=== PATIENT | male | born 1985 | race African-American/Black ===

== ENCOUNTER 2018-05-23 07:17 | Emergency (ER) | payer OTHER ==
--- NOTE | 2018-05-23 07:42 | ED Physician Documentation ---
PD HPI SYNCOPE - Stated complaint Stated Complaint: SYNCOPE - Chief complaint Chief Complaint: Neuro - History obtained from History obtained from: Patient - History of Present Illness Witnessed: Witnessed Timing - onset: How many minutes ago (30) Duration: Seconds Preceding symptoms: Light headed, Generalized weakness (he has had postural syncope in the past and has had cardiac eval, with tilt test done again just yesterday. He got sick overnight with nausea and several episodes of diarrhea and felt lightheaded and fainted upon getting up this mrelias. Denies injury from it. Feels okay now regarding lightheaded, but still feeling nausea and dehydrated.). No: Headache Contributing factors: Decreased PO intake, Just stood up. No: Recent med change Injury occurred: No: Head injury, Neck injury Review of Systems Constitutional: denies: Fever, Chills, Myalgias Nose: denies: Rhinorrhea / runny nose, Congestion Throat: denies: Sore throat Respiratory: denies: Cough GI: reports: Nausea, Diarrhea. denies: Abdominal Pain, Vomiting : denies: Dysuria, Frequency Neurologic: reports: Generalized weakness, Syncope, Headache. denies: Focal weakness, Numbness PD PAST MEDICAL HISTORY - Past Medical History Cardiovascular: Other (vasovagal syncopal episodes - with prior Holter, ECHO, and recent Tilt test. ) Respiratory: None Neuro: None Endocrine/Autoimmune: None GI: None - Present Medications Home Medications: Ambulatory Orders Medication Instructions Recorded Confirmed Diphenoxylate/Atropine [Lomotil] 1 each PO QID PRN #15 tablet 05/23/18 Midodrine HCl 2.5 mg PO TID 05/23/18 05/23/18 Ondansetron Odt [Zofran] 4 mg TL Q6H PRN #15 tablet 05/23/18 Paroxetine HCl [Paxil] 20 mg PO 05/23/18 - Allergies Allergies/Adverse Reactions: Allergies Allergy/AdvReac Type Severity Reaction Status Date / Time codeine Allergy Nausea Verified 05/23/18 07:43 - Living Situation Living Situation: reports: With spouse/s.o. Living Arrangement: reports: At home - Social History Does the pt smoke?: No Does the pt drink ETOH?: No Does the pt have substance abuse?: No - Family History Family history: denies: Sudden PD ED PE NORMAL - Vitals Vital signs reviewed: Yes - General General: Alert and oriented X 3, No acute distress, Well developed/nourished - HEENT HEENT: Pharynx benign. No: Moist mucous membranes - Neck Neck: Supple, no meningeal sign, No bony TTP, No adenopathy - Cardiac Cardiac: RRR, No murmur - Respiratory Respiratory: Clear bilaterally - Abdomen Abdomen: Normal bowel sounds, Soft, Non tender, Non distended, No organomegaly - Back Back: No CVA TTP - Derm Derm: Normal color, Warm and dry - Neuro Neuro: Alert and oriented X 3, No motor deficit, Normal speech Eye Opening: Spontaneous Motor: Obeys Commands Verbal: Oriented GCS Score: 15 - Psych Psych: Normal mood Results - Vitals Vitals: Vital Signs - 24 hr 05/23/18 09:54 Heart Rate [ 76 Sitting] Heart Rate [ 82 Standing] Heart Rate [ 67 Supine] Blood Pressure 128/76 [Sitting] Blood Pressure 118/76 [Standing] Blood Pressure 117/66 [Supine] Oxygen O2 Source Room air - Labs Labs: Laboratory Tests 05/23/18 05/23/18 05/23/18 08:15 08:15 08:15 WBC 4.5 L RBC 5.62 Hgb 14.5 Hct 44.2 MCV 78.7 L MCH 25.8 L MCHC 32.8 RDW 14.7 Plt Count 129 L MPV 7.7 Neut # (Auto) 2.8 Lymph # (Auto) 1.3 L Desha # (Auto) 0.4 Eos # (Auto) 0.0 Baso # (Auto) 0.0 Absolute Nucleated RBC 0.00 Nucleated RBC % 0.1 ESR Sodium 137 Potassium 4.1 Chloride 102 Carbon Dioxide 25 Anion Gap 10.0 BUN 12 Creatinine 1.1 Estimated GFR (MDRD) 94 Glucose 94 Calcium 9.0 Magnesium 1.8 Total Bilirubin 2.0 H AST 21 ALT 25 Alkaline Phosphatase 27 L CK-MB (CK-2) 3.5 Troponin I < 0.04 Total Protein 7.6 Albumin 4.5 Globulin 3.1 Albumin/Globulin Ratio 1.5 Lipase 26 05/23/18 08:15 WBC RBC Hgb Hct MCV MCH MCHC RDW Plt Count MPV Neut # (Auto) Lymph # (Auto) Desha # (Auto) Eos # (Auto) Baso # (Auto) Absolute Nucleated RBC Nucleated RBC % ESR 1 Sodium Potassium Chloride Carbon Dioxide Anion Gap BUN Creatinine Estimated GFR (MDRD) Glucose Calcium Magnesium Total Bilirubin AST ALT Alkaline Phosphatase CK-MB (CK-2) Troponin I Total Protein Albumin Globulin Albumin/Globulin Ratio Lipase PD MEDICAL DECISION MAKING - ED course Complexity details: considered differential (has symptoms with episodic orthostatic hypotension with fainting and has had cardiac testing. Now compounded with diarrhea overnight, so the syncope seems reasonable and focus of treatment was on the diarrhea and hydrations. ), d/w patient Departure - Departure Disposition: Home, Self Care Clinical Impression: Orthostatic syncope, Nausea vomiting and diarrhea, Dehydration, Abnormal ECG Condition: Stable Record reviewed to determine appropriate education?: Yes Instructions: ED Diarrhea Viral Follow-Up: AURELIANO Carranza [Provider Group] Prescriptions: Diphenoxylate/Atropine [Lomotil] 1 each PO QID PRN #15 tablet PRN Reason: Diarrhea Ondansetron Odt [Zofran] 4 mg TL Q6H PRN #15 tablet PRN Reason: Nausea / Vomiting Comments: Rest at home today and drink lots of fluids. Progress diet as able based on nausea. I presume you were under hydrated because of the diarrhea and the fluids should help. No doubt Adley increased your propensity for lighthe adedness when you stand up fast and led to this fainting again today. We will treat more the diarrhea and volume replacement through the day. Forms: Activity restrictions Discharge Date/Time: 05/23/18 10:03
[2018-05-23] MEDS ORDERED: KETOROLAC 60 MG/2 ML VIAL IVP STA (08:05)
[2018-05-23] MEDS ORDERED: DIPHENOX/ATROPINE 2.5/0.025 MG TABLET PO STA (08:05)
[2018-05-23] MEDS ORDERED: SODIUM CHLORIDE 0.9% 1,000 ML IV ONE ×2 (08:05)
[2018-05-23] MEDS ORDERED: ONDANSETRON 4 MG/2 ML VIAL IVP STA (08:05)
[2018-05-23 08:25] LABS: BASOPHILS % (AUTO) 0.8 %; EOSINOPHILS % (AUTO) 0.6 %; HGB - HEMOGLOBIN 14.5 g/dL (14.0-18.0); LYMPHOCYTES # (AUTO) 1.3 10^3/uL (1.5-3.5); LYMPHOCYTES % (AUTO) 28.2 %; MEAN CORPUSCULAR HEMOGLOBIN 25.8 pg (27.0-31.0); MEAN CORPUSCULAR HGB CONC 32.8 g/dL (32.0-36.0); MEAN CORPUSCULAR VOLUME 78.7 fL (80.0-94.0); MEAN PLATELET VOLUME 7.7 fL (7.4-11.4); MONOCYTES # (AUTO) 0.4 10^3/uL (0.0-1.0); MONOCYTES % (AUTO) 8.6 %; NEUTROPHILS # (AUTO) 2.8 10^3/uL (1.5-6.6); NEUTROPHILS % (AUTO) 61.8 %; PLT - PLATELET COUNT 129 10^3/uL (130-450); RED BLOOD COUNT 5.62 10^6/uL (4.70-6.10); RED CELL DISTRIBUTION WIDTH 14.7 % (12.0-15.0); WHITE BLOOD COUNT 4.5 x10^3/uL (4.8-10.8)
[2018-05-23 08:40] LABS: ALBUMIN 4.5 g/dL (3.2-5.5); ALBUMIN/GLOBULIN RATIO 1.5 (1.0-2.2); CREATININE 1.1 mg/dL (0.6-1.2); MAGNESIUM 1.8 mg/dL (1.7-2.8); TOTAL PROTEIN 7.6 g/dL (6.7-8.2)
[2018-05-23 08:45] LABS: TROPONIN I < 0.04 ng/mL (<0.49)
[2018-05-23 08:47] LABS: CREATINE KINASE MB 3.5 ng/mL (0.6-6.3)
[2018-05-23 09:57] VITALS: BP 118/76
== END 2018-05-23 10:03 | disposition home or self-care (01) ==
LOC: ED 07:17
DX: I95.1 Orthostatic hypotension (principal); E86.0 Dehydration; R19.7 Diarrhea, unspecified; R94.31 Abnormal electrocardiogram [ECG] [EKG]
CPT/HCPCS: 36415; 80053; 82553; 83690; 83735; 84484; 85025; 85651; 93005; 96361; 96374; 99283; A9270

== ENCOUNTER 2018-10-18 06:41 | Outpatient (CLI) | payer OTHER | END 2018-10-18 06:42 | disposition EMS.NT | LOC: EMS 06:41 | PROVIDERS: ATTEND Surgery | DX: R42 Dizziness and giddiness (principal); R25.1 Tremor, unspecified ==

== ENCOUNTER 2018-10-18 07:44 | Emergency (ER) | payer OTHER ==
[2018-10-18] MEDS ORDERED: LORazepam 2 MG/ML VIAL IVP STA (08:41)
[2018-10-18] MEDS ORDERED: FOLIC ACID INJ 1 MG, THIAMINE INJ 100 MG, MAGNESIUM SULFATE 2 GM, MULTIVITAMIN 10 ML in... IV STA ×5 (08:43)
--- NOTE | 2018-10-18 08:44 | ED Physician Documentation ---
History of Present Illness - Stated complaint Stated Complaint: WITHDRAWL - Chief complaint Chief Complaint: General - History obtained from History obtained from: Patient, Friend - History of Present Illness Timing: How many days ago (3) - Additonal information Additional information: 33-year-old alcoholic male who has been drinking continuously has stopped dri nking 60 hours ago and he started a Librium taper yesterday today he is having significant symptoms including some chest pressure and shakiness. Review of Systems Constitutional: reports: Myalgias, Fatigue. denies: Fever, Chills Eyes: denies: Decreased vision Ears: denies: Ear pain Nose: denies: Rhinorrhea / runny nose, Congestion Throat: denies: Sore throat Cardiac: reports: Chest pain / pressure. denies: Palpitations, Pedal edema, Calf pain Respiratory: denies: Dyspnea, Cough GI: reports: Abdominal Pain, Nausea, Vomiting : denies: Dysuria, Frequency PD PAST MEDICAL HISTORY - Past Medical History Cardiovascular: Other (vasovagal syncopal episodes - with prior Holter, ECHO, and recent Tilt test. ) Respiratory: None Neuro: None Endocrine/Autoimmune: None GI: None - Past Surgical History Past Surgical History: No - Present Medications Home Medications: Ambulatory Orders Medication Instructions Recorded Confirmed Midodrine HCl 2.5 mg PO TID 05/23/18 05/23/18 Paroxetine HCl [Paxil] 20 mg PO 05/23/18 Lorazepam [Ativan] 1 - 2 mg PO Q6HR PRN #30 tablet 10/18/18 Ondansetron Odt [Zofran] 4 mg TL Q6H PRN #10 tablet 10/18/18 chlordiazePOXIDE [Librium] 25 mg PO 10/18/18 10/18/18 - Allergies Allergies/Adverse Reactions: Allergies Allergy/AdvReac Type Severity Reaction Status Date / Time codeine Allergy Nausea Verified 10/18/18 07:51 - Social History Does the pt smoke?: No Smoking Status: Never smoker Does the pt drink ETOH?: No Does the pt have substance abuse?: No PD ED PE NORMAL - Vitals Vital signs reviewed: Yes (hypertensive mild ) - General General: Alert and oriented X 3, Well developed/nourished, Other (shakey and with delayed execution of motor commands. 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, No motor deficit, No sensory deficit, Normal speech Eye Opening: Spontaneous Motor: Obeys Commands Verbal: Oriented GCS Score: 15 - Psych Psych: Normal mood, Normal affect Results - Vitals Vitals: Vital Signs - 24 hr 10/18/18 10/18/18 10/18/18 07:48 08:34 09:42 Temperature 36.1 C L Heart Rate 76 80 73 Respiratory 20 18 18 Rate Blood Pressure 117/93 H 121/54 L 121/78 O2 Saturation 100 100 100 10/18/18 11:34 Temperature 36.0 C L Heart Rate 69 Respiratory 26 H Rate Blood Pressure 121/76 O2 Saturation 100 Oxygen O2 Source Room air - EKG (time done) 0803 Rate: Rate (enter#) (82) Rhythm: NSR QRS: Low voltage Ischemia: ST elevation c/w repol Compare to prior EKG: Changed from prior EKG (SPT 05-23-18 early repolarization findings are less prominent today .) Computer interpretation: Agree with computer - Labs Labs: Laboratory Tests 10/18/18 10/18/18 10/18/18 08:37 08:45 08:45 WBC 5.2 RBC 5.64 Hgb 14.8 Hct 45.9 MCV 81.3 MCH 26.2 L MCHC 32.2 RDW 15.0 Plt Count 136 MPV 8.3 Neut # (Auto) 3.1 Lymph # (Auto) 1.6 [place] # (Auto) 0.4 Eos # (Auto) 0.0 Baso # (Auto) 0.1 Absolute Nucleated RBC 0.01 Nucleated RBC % 0.1 PT 11.7 INR 1.0 Sodium Potassium Chloride Carbon Dioxide Anion Gap BUN Creatinine Estimated GFR (MDRD) Glucose Calcium Total Bilirubin AST ALT Alkaline Phosphatase Troponin I Total Protein Albumin Globulin Albumin/Globulin Ratio Lipase Urine Color YELLOW Urine Clarity CLEAR Urine pH 6.5 Ur Specific [place] 1.010 Urine Protein NEGATIVE Urine Glucose (UA) NEGATIVE Urine Ketones NEGATIVE Urine Occult Blood NEGATIVE Urine Nitrite NEGATIVE Urine Bilirubin NEGATIVE Urine Urobilinogen 0.2 (NORMAL) Ur Leukocyte Esterase NEGATIVE Ur Microscopic Review NOT INDICATED Urine Culture Comments NOT INDICATED Ethyl Alcohol 10/18/18 10/18/18 08:45 08:45 WBC RBC Hgb Hct MCV MCH MCHC RDW Plt Count MPV Neut # (Auto) Lymph # (Auto) [place] # (Auto) Eos # (Auto) Baso # (Auto) Absolute Nucleated RBC Nucleated RBC % PT INR Sodium 139 Potassium 4.0 Chloride 100 L Carbon Dioxide 27 Anion Gap 12.0 BUN 14 Creatinine 1.1 Estimated GFR (MDRD) 93 Glucose 87 Calcium 9.3 Total Bilirubin 1.1 H AST 23 ALT 22 Alkaline Phosphatase 26 L Troponin I < 0.04 Total Protein 7.7 Albumin 4.4 Globulin 3.3 Albumin/Globulin Ratio 1.3 Lipase 29 Urine Color Urine Clarity Urine pH Ur Specific [place] Urine Protein Urine Glucose (UA) Urine Ketones Urine Occult Blood Urine Nitrite Urine Bilirubin Urine Urobilinogen Ur Leukocyte Esterase Ur Microscopic Review Urine Culture Comments Ethyl Alcohol < 5.0 PD MEDICAL DECISION MAKING - ED course Complexity details: reviewed results, re-evaluated patient, considered differential, d/w patient, d/w family ED course: 33-year-old alcoholic male in acute withdrawal has had inadequate relief with the use of Librium. He is administered a banana bag intravenously and given 2 mg of Ativan intravenously. He feels much improved. I have discussed with the patient the nature of alcohol withdrawal and the need for medications to prevent the shakes, hallucinations and seizure and we will switch to the ativan for control of withdrawal symptoms. Departure - Departure Disposition: 01 Home, Self Care Clinical Impression: Alcohol withdrawal Qualifiers: Complication of substance-induced condition: with perceptual disturbance Qualified Code(s): F10.232 - Alcohol dependence with withdrawal with perceptual disturbance Condition: Stable Instructions: ED Withdrawal Alcohol Follow-Up: AURELIANO Carranza [Provider Group] Prescriptions: Lorazepam [Ativan] 1 - 2 mg PO Q6HR PRN #30 tablet PRN Reason: withdrawal symptoms Ondansetron Odt [Zofran] 4 mg TL Q6H PRN #10 tablet PRN Reason: Nausea / Vomiting Forms: Activity restrictions Discharge Date/Time: 10/18/18 11:37
[2018-10-18 09:02] LABS: BASOPHILS # (AUTO) 0.1 10^3/uL (0.0-0.1); BASOPHILS % (AUTO) 1.4 %; EOSINOPHILS % (AUTO) 0.4 %; HGB - HEMOGLOBIN 14.8 g/dL (14.0-18.0); LYMPHOCYTES # (AUTO) 1.6 10^3/uL (1.5-3.5); LYMPHOCYTES % (AUTO) 30.9 %; MEAN CORPUSCULAR HEMOGLOBIN 26.2 pg (27.0-31.0); MEAN CORPUSCULAR HGB CONC 32.2 g/dL (32.0-36.0); MEAN CORPUSCULAR VOLUME 81.3 fL (80.0-94.0); MEAN PLATELET VOLUME 8.3 fL (7.4-11.4); MONOCYTES # (AUTO) 0.4 10^3/uL (0.0-1.0); MONOCYTES % (AUTO) 7.4 %; NEUTROPHILS # (AUTO) 3.1 10^3/uL (1.5-6.6); NEUTROPHILS % (AUTO) 59.9 %; PLT - PLATELET COUNT 136 10^3/uL (130-450); RED BLOOD COUNT 5.64 10^6/uL (4.70-6.10); WHITE BLOOD COUNT 5.2 x10^3/uL (4.8-10.8)
[2018-10-18 09:04] LABS: BILIRUBIN,URINE NEGATIVE (NEGATIVE); GLUCOSE, URINE (UA) NEGATIVE (NEGATIVE); KETONES,URINE (UA) NEGATIVE (NEGATIVE); LEUKOCYTE ESTERASE, URINE NEGATIVE (NEGATIVE); NITRITE,URINE NEGATIVE (NEGATIVE); OCCULT BLOOD,URINE NEGATIVE (NEGATIVE); PH,URINE 6.5 PH (5.0-7.5); PROTEIN,URINE NEGATIVE (NEGATIVE); UROBILINOGEN,URINE 0.2 (NORMAL) E.U./dL (NORMAL)
[2018-10-18 09:06] LABS: CLARITY,URINE CLEAR (CLEAR)
[2018-10-18 09:10] LABS: ALBUMIN 4.4 g/dL (3.2-5.5); ALBUMIN/GLOBULIN RATIO 1.3 (1.0-2.2); ALKALINE PHOSPHATASE 26 IU/L (42-121); ALT ALANINE AMINOTRANSFERASE 22 IU/L (10-60); AST ASPARTATE AMINOTRANSFERASE 23 IU/L (10-42); BILIRUBIN,TOTAL 1.1 mg/dL (0.2-1.0); BUN - BLOOD UREA NITROGEN 14 mg/dL (6-20); CALCIUM 9.3 mg/dL (8.5-10.3); CARBON DIOXIDE - CO2 27 mmol/L (21-32); CHLORIDE 100 mmol/L (101-111); CREATININE 1.1 mg/dL (0.6-1.2); GFR - MDRD 93 (>89); GLUCOSE 87 mg/dL (70-100); LIPASE 29 U/L (22-51); SODIUM 139 mmol/L (135-145); TOTAL PROTEIN 7.7 g/dL (6.7-8.2)
[2018-10-18 09:32] LABS: PT - PROTHROMBIN TIME 11.7 secs (9.9-12.6)
[2018-10-18 11:35] VITALS: BP 121/76
== END 2018-10-18 11:37 | disposition home or self-care (01) ==
LOC: EDUNIT# → ED 07:44
DX: F10.232 Alcohol dependence with withdrawal with perceptual disturbance (principal)
CPT/HCPCS: 36415; 80053; 80320; 81003; 83690; 84484; 85025; 85610; 93005; 96365; 96375; 99284; J2060; J3411; 81001; 87086

== ENCOUNTER 2018-10-22 13:38 | Emergency (ER) | payer OTHER ==
--- NOTE | 2018-10-22 13:51 | ED Physician Documentation ---
History of Present Illness - Stated complaint Stated Complaint: MHE - Chief complaint Chief Complaint: MHE - History obtained from History obtained from: Patient - History of Present Illness Timing: Prior to arrival - Additonal information Additional information: Patient is a 33-year-old male with history of alcohol use, although no other known psychiatric diagnoses, presenting with concern for suicidal ideation and cutting of his wrists. Patient was seen on 10/18/18 for alcohol withdrawal symptoms. Patient had been on a Librium taper and also received a banana bag and Ativan while in the ED. Since discharge, patient reports he has not had any issues with alcohol withdrawal and has not had another drink. Patient also denies recreational drug use. Patient reports history of vasovagal syncope, although not on any medications. Patient denies other medical complaints except for feeling "used" by both family and work. Patient describes symptoms of depression and feeling suicidal, but denies hallucinations. Patient reports that he would use guns or knives, although his guns have been taken from him. Patient does admit to scratching his right thigh, as well as cutting his left wrist. Tetanus current. No other improving or worsening factors to his symptoms noted. Review of Systems Psychiatric: reports: Depressed, Suicidal PD PAST MEDICAL HISTORY - Past Medical History Cardiovascular: Other (vasovagal syncopal episodes - with prior Holter, ECHO, and recent Tilt test. ) Respiratory: None Neuro: None Endocrine/Autoimmune: None GI: None - Past Surgical History Past Surgical History: No - Present Medications Home Medications: Ambulatory Orders Medication Instructions Recorded Confirmed Lorazepam [Ativan] 1 - 2 mg PO Q6HR PRN #30 tablet 10/18/18 10/22/18 Ondansetron Odt [Zofran] 4 mg TL Q6H PRN #10 tablet 10/18/18 10/22/18 - Allergies Allergies/Adverse Reactions: Allergies Allergy/AdvReac Type Severity Reaction Status Date / Time codeine Allergy Nausea Verified 10/18/18 07:51 - Social History Does the pt smoke?: No Smoking Status: Never smoker Does the pt drink ETOH?: No Does the pt have substance abuse?: No PD ED PE NORMAL - General General: Alert and oriented X 3, No acute distress, Well developed/nourished - HEENT HEENT: Atraumatic, Moist mucous membranes, Pharynx benign - Cardiac Cardiac: RRR, No murmur - Respiratory Respiratory: No respiratory distress, Clear bilaterally - Abdomen Abdomen: Normal bowel sounds, Soft, Non tender, Non distended - Derm Derm: Normal color, Warm and dry, No rash, Other (Less than 1 cm linear laceration to dorsal aspect of left wrist with no active bleeding or damage to underlying structures. No tendon involvement, retained foreign body, or other complications such as infection noted.) - Extremities Extremities: No deformity, No tenderness to palpate, No edema - Neuro Neuro: Alert and oriented X 3, No motor deficit, No sensory deficit - Psych Psych: No: Normal affect (Flat affect, admits to depression-like symptoms and suicidal ideation. Denies hallucinations.) Results - Vitals Vitals: Vital Signs - 24 hr 10/22/18 13:44 Temperature 36.7 C Heart Rate 80 Respiratory 16 Rate Blood Pressure 117/86 H O2 Saturation 100 Oxygen O2 Source Room air - Labs Labs: Laboratory Tests 10/22/18 10/22/18 10/22/18 14:05 14:05 14:05 WBC 4.4 L RBC 5.99 Hgb 15.6 Hct 48.2 MCV 80.5 MCH 26.1 L MCHC 32.4 RDW 14.9 Plt Count 135 MPV 7.8 Neut # (Auto) 2.5 Lymph # (Auto) 1.4 L [place] # (Auto) 0.3 Eos # (Auto) 0.0 Baso # (Auto) 0.1 Absolute Nucleated RBC 0.00 Nucleated RBC % 0.1 WBC Morphology NORMAL APPEARANCE Platelet Estimate NORMAL (130-450,000) Platelet Morphology RARE GIANT PLATELETS RBC Morph Micro Appear ACANTHOCYTES Sodium 136 Potassium 3.9 Chloride 98 L Carbon Dioxide 28 Anion Gap 10.0 BUN 10 Creatinine 1.2 Estimated GFR (MDRD) 85 L Glucose 90 Calcium 10.2 Total Bilirubin 1.2 H AST 29 ALT 30 Alkaline Phosphatase 31 L Total Protein 8.6 H Albumin 4.8 Globulin 3.8 Albumin/Globulin Ratio 1.3 Lipase 29 TSH 1.19 Urine Color Urine Clarity Urine pH Ur Specific [place] Urine Protein Urine Glucose (UA) Urine Ketones Urine Occult Blood Urine Nitrite Urine Bilirubin Urine Urobilinogen Ur Leukocyte Esterase Ur Microscopic Review Urine Culture Comments Salicylates < 6.0 Urine Opiates Screen Ur Oxycodone Screen Urine Methadone Screen Ur Propoxyphene Screen Acetaminophen < 10 L Ur Barbiturates Screen Ur Tricyclics Screen Ur Phencyclidine Scrn Ur Amphetamine Screen U Methamphetamines Scrn U Benzodiazepines Scrn Urine Cocaine Screen U Cannabinoids Screen Ethyl Alcohol < 5.0 10/22/18 14:19 WBC RBC Hgb Hct MCV MCH MCHC RDW Plt Count MPV Neut # (Auto) Lymph # (Auto) [place] # (Auto) Eos # (Auto) Baso # (Auto) Absolute Nucleated RBC Nucleated RBC % WBC Morphology Platelet Estimate Platelet Morphology RBC Morph Micro Appear Sodium Potassium Chloride Carbon Dioxide Anion Gap BUN Creatinine Estimated GFR (MDRD) Glucose Calcium Total Bilirubin AST ALT Alkaline Phosphatase Total Protein Albumin Globulin Albumin/Globulin Ratio Lipase TSH Urine Color YELLOW Urine Clarity CLEAR Urine pH 8.0 H Ur Specific [place] 1.015 Urine Protein NEGATIVE Urine Glucose (UA) NEGATIVE Urine Ketones NEGATIVE Urine Occult Blood NEGATIVE Urine Nitrite NEGATIVE Urine Bilirubin NEGATIVE Urine Urobilinogen 0.2 (NORMAL) Ur Leukocyte Esterase NEGATIVE Ur Microscopic Review NOT INDICATED Urine Culture Comments NOT INDICATED Salicylates Urine Opiates Screen NEGATIVE Ur Oxycodone Screen NEGATIVE Urine Methadone Screen NEGATIVE Ur Propoxyphene Screen NEGATIVE Acetaminophen Ur Barbiturates Screen NEGATIVE Ur Tricyclics Screen NEGATIVE Ur Phencyclidine Scrn NEGATIVE Ur Amphetamine Screen NEGATIVE U Methamphetamines Scrn NEGATIVE U Benzodiazepines Scrn POSITIVE H Urine Cocaine Screen NEGATIVE U Cannabinoids Screen NEGATIVE Ethyl Alcohol Procedures - Laceration (location) Upper extremity left Length in cm: 1 Wound type: Linear Neurovascular status: Sensory intact, Motor intact, Vascular intact Tendon involvement: Tendon intact Skin layer closure: Dermabond Other: Patient tolerated well, No complications, Neurovascular intact, Tetanus UTD PD MEDICAL DECISION MAKING - ED course Complexity details: reviewed results, re-evaluated patient, considered differential, d/w patient ED course: Patient has struggled with alcohol use and was seen recently for withdrawal symptoms that require Librium taper, as well as Ativan, and banana bag. Patient denies recent alcohol use and do not find evidence of alcohol intoxication or acute withdrawal symptoms on exam. Do not believe he is experiencing delirium tremens or other complication from alcohol use. Additionally, I do not find evidence of other acute pathology or systemic illness, but trauma only to left wrist that was appropriately cleaned and repaired with Dermabond. Tetanus current. Patient appears to be struggling with mental health issues, likely depression and suicidal ideation. Obtained screening lab work and urinalysis and contacted social work for further evaluation.Screening lab work, urinalysis, and drug testing returned relatively unremarkable except for presence of benzodiazepines, which is likely from medications given several days ago for alcohol withdrawal. Social work evaluated patient in emergency department and recommended tele psychiatry evaluation. Slight psychiatry evaluation was performed. Tele psychiatrist recommended altering inpatient hospitalization, particularly as patient had admitted to feeling suicidal over the past several months. Patient's guns have been removed from his home and he was no longer allowed to carry a weapon per protocol as [place] the past several months as well. The psychiatrist also recommended starting Prozac 10 mg daily. Medication was ordered and patient tolerating oral intake without issue in ED. As patient is , [facility] contacted and accepted patient for transfer. Patient amenable to this plan. Departure - Departure Disposition: 02 Transfer Acute Care Hosp Clinical Impression: Suicidal ideation
[2018-10-22 14:17] LABS: BASOPHILS # (AUTO) 0.1 10^3/uL (0.0-0.1); BASOPHILS % (AUTO) 3.3 %; EOSINOPHILS % (AUTO) 0.8 %; HGB - HEMOGLOBIN 15.6 g/dL (14.0-18.0); LYMPHOCYTES # (AUTO) 1.4 10^3/uL (1.5-3.5); LYMPHOCYTES % (AUTO) 32.3 %; MEAN CORPUSCULAR HEMOGLOBIN 26.1 pg (27.0-31.0); MEAN CORPUSCULAR HGB CONC 32.4 g/dL (32.0-36.0); MEAN CORPUSCULAR VOLUME 80.5 fL (80.0-94.0); MEAN PLATELET VOLUME 7.8 fL (7.4-11.4); MONOCYTES # (AUTO) 0.3 10^3/uL (0.0-1.0); MONOCYTES % (AUTO) 5.8 %; NEUTROPHILS # (AUTO) 2.5 10^3/uL (1.5-6.6); NEUTROPHILS % (AUTO) 57.8 %; PLT - PLATELET COUNT 135 10^3/uL (130-450); RED BLOOD COUNT 5.99 10^6/uL (4.70-6.10); RED CELL DISTRIBUTION WIDTH 14.9 % (12.0-15.0); WHITE BLOOD COUNT 4.4 x10^3/uL (4.8-10.8)
[2018-10-22 14:28] LABS: MUDS CUTOFF CONCENTRATIONS CUTOFF CONC BELOW:
[2018-10-22 14:30] LABS: BILIRUBIN,URINE NEGATIVE (NEGATIVE); GLUCOSE, URINE (UA) NEGATIVE (NEGATIVE); KETONES,URINE (UA) NEGATIVE (NEGATIVE); LEUKOCYTE ESTERASE, URINE NEGATIVE (NEGATIVE); NITRITE,URINE NEGATIVE (NEGATIVE); OCCULT BLOOD,URINE NEGATIVE (NEGATIVE); PROTEIN,URINE NEGATIVE (NEGATIVE); UROBILINOGEN,URINE 0.2 (NORMAL) E.U./dL (NORMAL)
[2018-10-22 14:33] LABS: CLARITY,URINE CLEAR (CLEAR)
[2018-10-22 14:39] LABS: ACETAMINOPHEN < 10 ug/mL (10-30); ALBUMIN 4.8 g/dL (3.2-5.5); ALBUMIN/GLOBULIN RATIO 1.3 (1.0-2.2); ALKALINE PHOSPHATASE 31 IU/L (42-121); ALT ALANINE AMINOTRANSFERASE 30 IU/L (10-60); AST ASPARTATE AMINOTRANSFERASE 29 IU/L (10-42); BILIRUBIN,TOTAL 1.2 mg/dL (0.2-1.0); BUN - BLOOD UREA NITROGEN 10 mg/dL (6-20); CALCIUM 10.2 mg/dL (8.5-10.3); CARBON DIOXIDE - CO2 28 mmol/L (21-32); CHLORIDE 98 mmol/L (101-111); CREATININE 1.2 mg/dL (0.6-1.2); GFR - MDRD 85 (>89); GLUCOSE 90 mg/dL (70-100); LIPASE 29 U/L (22-51); SALICYLATE < 6.0 mg/dL; SODIUM 136 mmol/L (135-145); TOTAL PROTEIN 8.6 g/dL (6.7-8.2)
[2018-10-22 14:44] LABS: AMPHETAMINE SCREEN,URINE NEGATIVE (NEGATIVE); BENZODIAZEPINES SCREEN, URINE POSITIVE (NEGATIVE); COCAINE SCREEN URINE NEGATIVE (NEGATIVE); METHADONE SCREEN, URINE NEGATIVE (NEGATIVE); METHAMPHETAMINES SCREEN, URINE NEGATIVE (NEGATIVE); OPIATE SCREEN, URINE NEGATIVE (NEGATIVE); OXYCODONE SCREEN, URINE NEGATIVE (NEGATIVE); PROPOXYPHENE SCREEN, URINE NEGATIVE (NEGATIVE); TRICYCLIC ANTIDEPRESSANT,URINE NEGATIVE (NEGATIVE)
[2018-10-22 14:56] LABS: PLATELET ESTIMATE, MANUAL NORMAL (130-450,000) (NORMAL); PLATELET MORPHOLOGY RARE GIANT PLATELETS (NORMAL)
--- NOTE | 2018-10-22 19:12 | TELEPSYCH PHYS NOTE ---
Telepsych Note - CHIEF COMPLAINT/HX OF PRESENT ILLNESS Cheif Complaint and History of Present Illness: Chief Complaint: depression HPI: The patient is a 33-year-old -[place] male with a history of depression. He comes to the hospital with cut to his wrists. He admitted to suicidal thoughts. He was referred to psychiatry. When seen by the psychiatrist, the patient reported that he has been depressed for the past 6 months with poor sleep, poor appetite, and feelings of hopelessness. 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 His guns were removed by his employer 2 months ago due to his mental state. - SI/HI/SELF HARM SI/HI/SELF HARM (CURRENT OR HISTORY OF):: SI SI/HI/Self Harm Text (Current or History of):: No prior suicide attempts. - VIOLENCE/LEGAL/COLLATERAL Violence - Legal - Collateral: Violence: none Legal: none Collateral: none - PSYCHIATRIC HX/TREATMENT HX Psychiatric/Treatment Hx Other: One prior inpatient admission in 2008 ([place]). Current outpatient treatment-on [employer]. No prior suicide attempts. - DRUG/ALCOHOL HX ETOH Use: Beer Substance use/abuse/alcohol text: Alcohol-drinks 7-8 beers and a bottle of alcohol daily, sober for one week - MEDICAL HX Does the pt have a hx of MRSA?: No Neurological History: None Cardiovascular: Other Respiratory: None Endocrine/Autoimmune: None Gastrointestinal: None - HOME MEDICATIONS Home Meds (as last confirmed): none - ALLERGIES Allergies (as last confirmed): Allergies Allergy/AdvReac Type Severity Reaction Status Date / Time codeine Allergy Nausea Verified 10/18/18 07:51 - FAMILY PSYCH/SUICIDE/SOCIAL HX-MENTAL Family - Suicide - Social Hx and Mental Status Exam: Family Psychiatric History: none Social History: , lives with and 5 kids Employment: logistics team lead Education: HS grad, some college Stressors: family, chronic pain History: none Abuse: none Mental Status Examination: Attitude and behavior: cooperative Speech: WNL Affect and mood: sad affect and mood Association and thought processes: linear Thought content: no delusions, + SI, no HI Perception: no hallucinations Sensorium, memory, and orientation: AAOx3 Intellectual functioning: average Insight and judgment: poor - PATIENT PROBLEM LIST (1) Major depressive disorder, recurrent severe without psychotic features Impression: The patient is a 33-year-old male with a history of depression and alcohol abuse. He presents to the hospital complaining of several months of depressed mood and suicidal thoughts. The patient is not safe for discharge. Admit as voluntary. Start antidepressants. - TREATMENT/PHARMACOLOGICAL RECOMMENDATION Treatment - Pharmacological - Therapy Recommendations: Treatment Recommendations: inpatient care Pharmacological: Prozac 10 mg daily Therapy: supportive Level of Care: inpatient - TIME SPENT & PROVIDER LOCATION Telepsych consultation conducted via videoconferencing: Yes List names and roles of persons who participated in consult: José Miguel Willingham M.D. [facility] Telepsych Provider Location: [place] Time Telepsych consult began: 21:40 Time Telepsych consult completed: 22:00
[2018-10-22] MEDS ORDERED: FLUoxetine 10 MG CAPSULE PO SCH (21:00)
[2018-10-22 21:43] VITALS: BP 117/91
== END 2018-10-22 22:38 | disposition short-term general hospital (02) ==
LOC: EDUNIT# → ED 13:38
DX: R45.851 Suicidal ideations (principal); F33.2 Major depressive disorder, recurrent severe without psychotic features; S61.512A Laceration without foreign body of left wrist, initial encounter; S70.311A Abrasion, right thigh, initial encounter; X78.9XXA Intentional self-harm by unspecified sharp object, initial encounter
CPT/HCPCS: 12001; 36415; 80320; 80329; 81003; 83690; 93005; 99283; 99284; A9270; Q3014; 80053; 80306; 80307; 81001; 84443; 85025; 87086

== ENCOUNTER 2019-04-01 06:05 | Outpatient (CLI) | payer OTHER | END 2019-04-01 06:06 | disposition critical access hospital (66) | LOC: EMS 06:05 | PROVIDERS: ATTEND Surgery | DX: R55 Syncope and collapse (principal) | CPT/HCPCS: A0425; A0429 ==

== ENCOUNTER 2019-04-01 06:28 | Emergency (ER) | payer OTHER ==
--- NOTE | 2019-04-01 07:42 | ED Physician Documentation ---
PD HPI SYNCOPE - Stated complaint Stated Complaint: NEAR SYNCOPE - Chief complaint Chief Complaint: Neuro - History obtained from History obtained from: Patient - History of Present Illness Witnessed: Witnessed Timing - onset: Today Duration: Minutes Preceding symptoms: Vision changes, Light headed Associated symptoms: Headache Contributing factors: Just stood up (to get into shower), Other (has started working 2 jobs) Treatment [employer]: Fluids Similar symptoms before: Diagnosis (vasovagal syncope) Recently seen: Not recently seen - Additional information Additional information: Syncope and near syncope got up to get into the shower this morning and felt lightheaded and dizzy had to sit down in the shower is brought to the hospital now by ambulance he was given 450 mL's of saline in route the patient feels well now. He has had headache the past 2 days but no other specific symptoms. He has recently started working a second job and is now working 7 days/week. He does feel fatigued. He denies specifically a cough or sore throat. Review of Systems Constitutional: reports: Myalgias, Fatigue. denies: Fever Eyes: denies: Decreased vision Ears: denies: Ear pain Nose: denies: Rhinorrhea / runny nose, Congestion Throat: denies: Sore throat Cardiac: denies: Chest pain / pressure, Palpitations Respiratory: denies: Dyspnea, Cough GI: reports: Nausea. denies: Abdominal Pain, Vomiting, Constipation, Diarrhea : denies: Dysuria, Frequency Skin: denies: Rash Musculoskeletal: denies: Neck pain, Back pain, Extremity pain Neurologic: reports: Near syncope, Headache. denies: Generalized weakness, Focal weakness, Numbness, Head injury, LOC PD PAST MEDICAL HISTORY - Past Medical History Past Medical History: Yes Cardiovascular: Other Respiratory: None Neuro: None Endocrine/Autoimmune: None GI: None - Past Surgical History Past Surgical History: No - Present Medications Home Medications: Ambulatory Orders Medication Instructions Recorded Confirmed Lorazepam [Ativan] 1 - 2 mg PO Q6HR PRN #30 tablet 10/18/18 10/22/18 Ondansetron Odt [Zofran] 4 mg TL Q6H PRN #10 tablet 10/18/18 10/22/18 Azithromycin [Zithromax] 250 mg PO DAILY #6 tablet 04/01/19 - Allergies Allergies/Adverse Reactions: Allergies Allergy/AdvReac Type Severity Reaction Status Date / Time codeine Allergy Nausea Verified 10/18/18 07:51 - Social History Does the pt smoke?: No Smoking Status: Never smoker Does the pt drink ETOH?: Yes Does the pt have substance abuse?: No - Immunizations Immunizations are current?: Yes - POLST Patient has POLST: No PD ED PE NORMAL - Vitals Vital signs reviewed: Yes (normal ) - General General: Alert and oriented X 3, No acute distress, Well developed/nourished - HEENT HEENT: Atraumatic, PERRL, EOMI, Other (The right TM is clear the left is inflamed with rounding of the landmarks. The pharynx is with 2+ tonsils worse on the left with exudate. 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, No motor deficit, No sensory deficit, Normal speech Eye Opening: Spontaneous Motor: Obeys Commands Verbal: Oriented GCS Score: 15 - Psych Psych: Normal mood, Normal affect Results - Vitals Vitals: Vital Signs - 24 hr 04/01/19 04/01/19 04/01/19 06:29 06:35 09:27 Temperature 36.5 C Heart Rate 69 62 71 Respiratory 16 14 17 Rate Blood Pressure 113/71 113/71 117/80 O2 Saturation 100 100 100 Oxygen O2 Source Room air - EKG (time done) 0633 Rate: Rate (enter#) (60) Ischemia: ST elevation c/w repol Compare to prior EKG: Unchanged from prior EKG (SPT 10-18-2018 rate has slowed and the baseline has improved repolarization similar to priors. ) Computer interpretation: Agree with computer - Labs Labs: Laboratory Tests 04/01/19 04/01/19 04/01/19 06:40 06:40 06:40 WBC 5.2 RBC 5.65 Hgb 14.4 Hct 46.1 MCV 81.6 MCH 25.5 L MCHC 31.2 L RDW 13.8 Plt Count 135 MPV 10.8 Neut # (Auto) 1.6 Lymph # (Auto) 3.0 Irwin # (Auto) 0.5 Eos # (Auto) 0.1 Baso # (Auto) 0.0 Absolute Nucleated RBC 0.00 Nucleated RBC % 0.0 Sodium 140 Potassium 4.0 Chloride 106 Carbon Dioxide 27 Anion Gap 7.0 BUN 20 Creatinine 1.2 Estimated GFR (MDRD) 85 L Glucose 80 Calcium 8.9 Total Bilirubin 1.8 H AST 22 ALT 18 Alkaline Phosphatase 21 L Troponin I High Sens 3.8 Total Protein 7.3 Albumin 4.2 Globulin 3.1 Albumin/Globulin Ratio 1.4 Lipase 26 Procedures - IVC sono (time) 750 Bedside IVC sono: IVC measures (cm) (1.58), Euvolemia PD MEDICAL DECISION MAKING - ED course Complexity details: reviewed old records, reviewed results, re-evaluated patient, considered differential, d/w patient ED course: 33-year-old male with a prior history of syncope and near syncope 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 Today he had an episode of near syncope and has come to the emergency department by ambulance. He is found to be euvolemic on interrogation of the inferior vena cava and the only finding on physical exam is a left otitis that the patient is otherwise asymptomatic with. I did discuss the with the patient a [id number] policy he is more interested in treatment as he feels this is likely affecting him today. He is recently started a second job and is now working 7 days/week. Departure - Departure Disposition: 01 Home, Self Care Clinical Impression: Vasovagal near syncope Otitis media Qualifiers: Otitis media type: suppurative Chronicity: acute Laterality: left Recurrence: non-recurrent Spontaneous tympanic membrane rupture: without spontaneous rupture Qualified Code(s): H66.002 - Acute suppurative otitis media without spontaneous rupture of ear drum, left ear Condition: Stable Instructions: ED Otitis Media Acute Adult, ED Near Syncope Vasovagal Follow-Up: [facility] [Provider Group] Prescriptions: Azithromycin [Zithromax] 250 mg PO DAILY #6 tablet Forms: Activity restrictions
[2019-04-01] MEDS ORDERED: DEXAMETHASONE 10 MG/ML VIAL IVP STA (07:52)
[2019-04-01 08:03] LABS: BASOPHILS % (AUTO) 0.4 %; EOSINOPHILS # (AUTO) 0.1 10^3/uL (0.0-0.7); EOSINOPHILS % (AUTO) 1.5 %; HGB - HEMOGLOBIN 14.4 g/dL (14.0-18.0); LYMPHOCYTES % (AUTO) 57.9 %; MEAN CORPUSCULAR HEMOGLOBIN 25.5 pg (27.0-31.0); MEAN CORPUSCULAR HGB CONC 31.2 g/dL (32.0-36.0); MEAN CORPUSCULAR VOLUME 81.6 fL (80.0-94.0); MEAN PLATELET VOLUME 10.8 fL (7.4-11.4); MONOCYTES # (AUTO) 0.5 10^3/uL (0.0-1.0); MONOCYTES % (AUTO) 8.8 %; NEUTROPHILS # (AUTO) 1.6 10^3/uL (1.5-6.6); PLT - PLATELET COUNT 135 10^3/uL (130-450); RED BLOOD COUNT 5.65 10^6/uL (4.70-6.10); RED CELL DISTRIBUTION WIDTH 13.8 % (12.0-15.0); WHITE BLOOD COUNT 5.2 x10^3/uL (4.8-10.8)
[2019-04-01 08:11] LABS: ALBUMIN 4.2 g/dL (3.2-5.5); ALBUMIN/GLOBULIN RATIO 1.4 (1.0-2.2); BILIRUBIN,TOTAL 1.8 mg/dL (0.2-1.0); CALCIUM 8.9 mg/dL (8.5-10.3); CREATININE 1.2 mg/dL (0.6-1.2); TOTAL PROTEIN 7.3 g/dL (6.7-8.2)
[2019-04-01 09:28] VITALS: BP 117/80
== END 2019-04-01 09:48 | disposition home or self-care (01) ==
LOC: EDUNIT# → ED 06:28
DX: R55 Syncope and collapse (principal); H66.002 Acute suppurative otitis media without spontaneous rupture of ear drum, left ear; I44.7 Left bundle-branch block, unspecified
CPT/HCPCS: 36415; 80053; 83690; 84484; 85025; 93005; 96374; 99283